=== PATIENT | male | born 1970 | race Two or more races ===

== ENCOUNTER 2017-06-27 08:52 | Day surgery (SDC) | payer BC ==
[~2017-06-27] VITALS: Ht 172.7 cm; Wt 79.4 kg
[2017-06-27] VITALS (9 sets, daily range): BP systolic 102–113; BP diastolic 66–76
[~2017-06-27 08:52] MED LIST: NKM; ceFAZolin sod 1 GM in NS 55 ML IVPB ONE
--- NOTE | 2017-06-27 11:16 | Pre-Procedure Note/Attestation ---
Pre-Procedure Note/Attestation Complete Prior to Procedure Planned Procedure: not applicable Procedure Narrative: nasal obstruction unresponsive to medication Indications for Procedure Pre-Operative Diagnosis: septal deviation, bilateral hypertrophied inferior turbinates Attestation I attest that I discussed the nature of the procedure; its benefits; risks and complications; and alternatives (and the risks and benefits of such alternatives ), prior to the procedure, with the patient (or the patient's legal front desk representative). I attest that, if there was a reasonable possibility of needing a blood transfusion, the patient (or the patient's legal front desk representative) was given the [facility] standardized written summary, pursuant to the [place] Blood Safety Act ([place] Health and Safety Code # 1645, as amended). I attest that I re-evaluated the patient just prior to the surgery and that there has been no change in the patient's H&P, except as documented below: BRANDAN ROMAN Jun 27, 2017 11:16
--- NOTE | 2017-06-27 11:21 | Anethesia Preoperative Eval ---
Anesthesia Pre-op PMH/ROS General Date of Evaluation: Jun 27, 2017 Anesthesiologist: Avinash ASA Score: ASA 1 Mallampati Score Class I : Soft palate, uvula, fauces, pillars visible Class II: Soft palate, uvula, fauces visible Class III: Soft palate, base of uvula visible Class IV: Only hard plate visible Mallampati Classification: Class II Surgeon: Brigitte Diagnosis: Deviated septum Surgical Procedure: Septoplasty, SMR TURBS Anesthesia History: none Family History: no anesthesia problems Allergies: Coded Allergies: No Known Allergies (Unverified , 06/26/17) Medications: see eMAR Past Medical History Cardiovascular: Denies: HTN, CAD, [place], valve dz, arrhythmia, other Pulmonary: Denies: asthma, COPD, JUAN, other Gastrointestinal/Genitourinary: Denies: GERD, CRI, ESRD, other Neurologic/Psychiatric: Denies: dementia, CVA, depression/anxiety, TIA, other Endocrine: Denies: DM, hypothyroidism, steroids, other HEENT: Denies: cataract (L), cataract (R), glaucoma, [place] (L[place] (R), other Hematology/Immune: Denies: anemia, DVT, bleeding disorder, other Musculoskeletal/Integumentary: Denies: OA, RA, DJD, DDD, edema, other PSxH Narrative: Denies Anesthesia Pre-op Phys. Exam Physician Exam Last Vital Signs Date Time Temp Pulse Resp B/P (MAP) Pulse Ox O2 Delivery O2 Flow Rate FiO2 06/27/17 09:41 97.8 64 18 113/72 98 Room Air Constitutional: NAD Cardiovascular: RRR Respiratory: CTA Airway Exam Mallampati Score: Class II MO: full ROM: full Teeth: intact Anesthesia Pre-op A/P Labs see chart Studies Pre-op Studies: EKG - sr Risk Assessment & Plan Assessment: ASA II Plan: GA Status Change Before Surgery: No Pre-Antibiotics Drug: SANTIAGO MELARA M.D. Jun 27, 2017 11:21
[2017-06-27] MEDS ORDERED: Kenalog-40 1ml Vial ONE (11:47)
[2017-06-27] MEDS ORDERED: Bacitracin Oint 15gm Tube TOPIC ONE (11:47)
[2017-06-27] MEDS ORDERED: Cocaine HCl 4% 4ml vial TOPIC ONE (11:47)
[2017-06-27] MEDS ORDERED: Oxymetazoline 0.05% Na Spray 30ml NASAL ONE (11:48)
[2017-06-27] MEDS ORDERED: Lidocaine 1% MPF 10mg/ml 5ml ONE (12:00)
[2017-06-27] MEDS ORDERED: LR 1000ml ONE (12:00)
[2017-06-27] MEDS ORDERED: Lidocaine 1% 10mg/ml/EPI 0.01mg/ml 50ml INJ ONE (12:00)
[2017-06-27] MEDS ORDERED: Propofol 200mg/20ml IV ONE (12:00)
[2017-06-27] MEDS ORDERED: Metoclopramide 10mg/2ml Inj ONE (12:00)
[2017-06-27] MEDS ORDERED: Sterile Water Irrig 1000ml IRRIG ONE (12:00)
[2017-06-27] MEDS ORDERED: Zemuron 50mg/5ml Inj IV ONE (12:00)
[2017-06-27] MEDS ORDERED: NS Irrig 1000ml ONE (12:00)
[2017-06-27] MEDS ORDERED: Dexamethasone 4mg/ml vial ONE (12:00)
[2017-06-27] MEDS ORDERED: fentaNYL 100 mcg/2 mL IV ONE (12:00)
[2017-06-27] MEDS ORDERED: Midazolam 2mg/2ml Inj ONE (12:00)
[2017-06-27] MEDS ORDERED: LR 1000ml 1,000 ML IVLG SCH (12:46)
--- NOTE | 2017-06-27 12:48 | Immediate Post-Op Evaluation ---
Immediate Post-Op Evalulation Immediate Post-Op Evalulation Procedure: Septoplasty SMR/TURBS Date of Evaluation: Jun 27, 2017 Time of Evaluation: 14:24 IV Fluids: 1.2L Blood Products: 0 Estimated Blood Loss: min Urinary Output: 0 Blood Pressure Systolic: 110 Blood Pressure Diastolic: 73 Pulse Rate: 56 Respiratory Rate: 15 O2 Sat by Pulse Oximetry: 100 Temperature (Fahrenheit): 97.1 Pain Score (1-10): 0 Nausea: No Vomiting: No Complications 0 Patient Status: awake, reacts, patent, none Hydration Status: adequate Drug: Ancef 1g Given Within 1 Hr of Incision: Yes Time Given: 12:30 SANTIAGO MAHMOOD M.D. Jun 27, 2017 12:48
--- NOTE | 2017-06-27 12:48 | 48 Hour Post Anesthesia Eval ---
Post Anesthesia Evaluation Procedure: Septoplasty SMR/TURBS Date of Evaluation: Jun 27, 2017 Airway: patent Nausea: No Vomiting: No Pain Intensity: 0 Hydration Status: adequate Cardiopulmonary Status: at baseline Mental Status/LOC: patient returned to baseline Post-Anesthesia Complications: 0 Follow-up care needed: ready to discharge SANTIAGO MAHMOOD M.D. Jun 27, 2017 12:48
[2017-06-27] MEDS ORDERED: Metoclopramide 10mg/2ml Inj IVP PRN (13:00)
[2017-06-27] MEDS ORDERED: LORazepam Inj 2mg/ml 1ml IV PRN (13:00)
[2017-06-27] MEDS ORDERED: Hydromorphone 0.5mg/0.5ml inj IVP PRN (13:00)
[2017-06-27] MEDS ORDERED: Midazolam 2mg/2ml Inj IVP PRN (13:00)
[2017-06-27] MEDS ORDERED: fentaNYL 100 mcg/2 mL IV PRN (13:00)
[2017-06-27] MEDS ORDERED: DiphenhydrAMINE 50mg/ml Inj IVP PRN (13:00)
[2017-06-27] MEDS ORDERED: Betadine 10% Oint 15gm TOPIC ONE (13:37)
--- NOTE | 2017-06-27 14:17 | Brief Operative Note ---
Immediate Post Operative Note Operative Note Pre-op Diagnosis: septal deviation, bilateral hypertrophied inferior turbinates Procedure: septoplasty, bilateral inferior turbinectomies with intramural coagulation Post-op Diagnosis: same as pre-op Surgeon: Neftali Ronquillo M.D. Anesthesiologist: Avinash Anesthesia: general Specimen: yes - septum Complications: none Condition: stable Fluids: LR 1000cc Estimated Blood Loss: minimal Drains: none Packing: telfa Implant(s) used?: Yes NEFTALI ROMAN Jun 27, 2017 14:17
--- NOTE | 2017-06-30 00:46 | Operative Note - Dictated ---
DATE OF OPERATION: 06/27/2017 SURGEON: Neftali Briggs M.D. ANESTHESIOLOGIST: Dr. Da Silva. PREOPERATIVE DIAGNOSES: 1. Septal deviation. 2. Bilateral hypertrophied inferior turbinates. POSTOPERATIVE DIAGNOSES: 1. Septal deviation. 2. Bilateral hypertrophied inferior turbinates. Anesthesia: General PROCEDURES: 1. Septoplasty. 2. Bilateral inferior turbinectomies with intramural coagulation. INDICATIONS FOR SURGERY: The patient is a 46-year-old male, who has complained of right greater than left nasal airway obstruction, which has been unresponsive to medication. His examination reveals a severe S-shaped septal deviation with the septum curving to left inferior, then to the right to such an extent that the septum was pushing up against the right inferior turbinate and obstructing the right middle meatus. This combined with the patient's bilateral hypertrophied inferior turbinates, created a left greater than right nasal airway obstruction. Because of his persistent nasal obstruction, unresponsive to medication, he is now being brought to the operating room for surgical repa PROCEDURE AND FINDINGS: The patient was brought to the operating room while premedicated and placed in supine position on the operating room table. He was given IV antibiotics and then underwent endotracheal intubation followed by IV sedation. The nasal cavity was sprayed with 0.25% Homero-Synephrine. His nose was so obstructed that much of the nasal spray came out of his nostrils. After a suitable period of vasoconstriction, sterile Q-tip saturated Betadine were used to sterilize the intranasal cavity. Approximately 18 mL of 1% Xylocaine with 1:100,000 epinephrine was used to inject the nasal and septal frameworks. Less than 200 mg of cocaine was used on intranasal packing. The patient was then prepped and draped in usual sterile fashion. After a suitable period of vasoconstriction, the packing was removed. The suction was then used to remove all trapped intranasal mucus. A #15 blade was used to make a right inferior septal incision and right mucoperichondrial mucoperiosteal flap was then elevated. An incision was then made between the cartilage and bony septum and a left mucoperiosteal flap was elevated. That portion of overriding and obstructing perpendicular plate of the ethmoid and vomer bone were incised in strips from the remaining attachments, and removed in the field of operation. A similar procedure was used on the cartilaginous septum maintaining good anterior inferior support. The large obstructing maxillary crest spur was then removed with mallet and chisel technique. Re-examination now revealed the septum in a good midline physiologic position for breathing. Bilateral intramural coagulation of both inferior turbinates was then performed. An incision was made in the undersurface of both inferior turbinates and mucosa stripped from the underlying bone. The underlying bone was then outfractured and small pieces removed from the pocket. Re-examination revealed minimal bleeding and a good nasal airway. All blood was then suctioned from the nose and nasopharynx area. A 4-0 plain was used to close the septal incision as well as splint the septum. Telfa-coated bacitracin ointment was secured intranasally with a suture of 3-0 silk and procedure was terminated. The patient tolerated the procedure well and left the operating room in satisfactory condition. Estimated blood loss was 30 mL. Sponge and needle count were correct. Neftali Briggs M.D. DR: Antelmo JOB#: [id number] CC: [email or web address]
== END 2017-06-27 15:55 | disposition home or self-care (01) ==
LOC: SUR 08:52 → EDBD 11:00 → SUR 15:55
DX: J34.2 Deviated nasal septum (principal); J34.3 Hypertrophy of nasal turbinates
CPT/HCPCS: 30140; 30520; J0690; J1100; J1170; J2250; J2405; J2704; J2765; J3010; J7120; 94003; 94150